=== PATIENT | male | born 1940 | race African-American/Black ===

== ENCOUNTER 2016-06-29 15:54 | Inpatient (IN) | payer MEDICARE, MEDICAID ==
[~2016-06-29] VITALS: Ht 180.3 cm; Wt 70.9 kg
[~2016-06-29 15:54] MED LIST: DIVA500T35 PO; HALO5 PO; RISP3 PO
[2016-06-29] MEDS ORDERED: HALOPERIDOL 5 MG TABLET PO PRN (16:45)
[2016-06-29] MEDS ORDERED: LORazepam 2 MG TABLET PO PRN (16:45)
[2016-06-29] MEDS ORDERED: ZOLPIDEM TARTRATE 10 MG TABLET PO PRN (16:45)
[2016-06-29] MEDS ORDERED: PNEUMOCOCCAL VACCINE POLYVALENT 0.5 ML VIAL [PPSV23] IM ONE (17:00)
[2016-06-29 17:20] VITALS: BP 154/93
[2016-06-29 19:55] VITALS: BP 166/83
[2016-06-29] MEDS ORDERED: CloNIDine HCL 0.1 MG TABLET PO PRN (20:00)
[2016-06-29] MEDS: DIVALPROEX SODIUM 500 MG DR TABLET PO SCH (20:33)
[2016-06-29] MEDS: RisperiDONE 1 MG TABLET PO SCH (20:33)
[2016-06-30 06:40] VITALS: BP 138/75
[2016-06-30 08:13] VITALS: BP 121/71
[2016-06-30] MEDS: RisperiDONE 1 MG TABLET PO SCH ×2 (09:00→16:41)
[2016-06-30] MEDS: DIVALPROEX SODIUM 500 MG DR TABLET PO SCH ×2 (09:00→20:42)
[2016-06-30] MEDS ORDERED: PETROLATUM,WHITE 71 GM JELLY TP PRN (11:30)
[2016-06-30] MEDS ORDERED: ACETAMINOPHEN 325 MG TABLET PO PRN (11:30)
[2016-06-30] MEDS ORDERED: IBUPROFEN 600 MG TABLET PO PRN (11:30)
[2016-06-30] MEDS ORDERED: CloNIDine HCL 0.1 MG TABLET PO PRN (11:30)
[2016-06-30] MEDS ORDERED: BENZOCAINE/MENTHOL LOZENGE MM PRN (11:30)
[2016-06-30] MEDS ORDERED: BACITRACIN 28.4 GM OINTMENT TP PRN (11:30)
[2016-06-30] MEDS ORDERED: ONDANSETRON HCL 4 MG TABLET PO PRN (11:30)
[2016-06-30] MEDS ORDERED: MAG HYDROX/AL HYDROX/SIMETH ES 30 ML SUSPENSION UDCUP PO PRN (11:30)
[2016-06-30] MEDS ORDERED: ALBUTEROL SULFATE HFA 90 MCG/PUFF 8 GM INHALER IH PRN (11:30)
[2016-06-30] MEDS ORDERED: LOPERAMIDE HCL 2 MG CAPSULE PO PRN (11:30)
[2016-06-30] MEDS ORDERED: MAGNESIUM HYDROXIDE SUSPENSION 30 ML UDCUP PO PRN (11:30)
[2016-06-30 16:00] VITALS: BP 125/82
[2016-07-01 07:06] VITALS: BP 135/76
[2016-07-01 08:26] VITALS: BP 128/65
[2016-07-01] MEDS: RisperiDONE 1 MG TABLET PO SCH ×2 (08:59→17:00)
[2016-07-01] MEDS: DIVALPROEX SODIUM 500 MG DR TABLET PO SCH ×2 (08:59→20:45)
[2016-07-01] MEDS ORDERED: LORA1TAB3 PO (11:08)
[2016-07-01 16:00] VITALS: BP 128/88
[2016-07-02 06:42] VITALS: BP 122/76
[2016-07-02 08:32] VITALS: BP 117/68
[2016-07-02] MEDS: RisperiDONE 1 MG TABLET PO SCH (08:47)
[2016-07-02] MEDS: DIVALPROEX SODIUM 500 MG DR TABLET PO SCH (08:47)
== END 2016-07-02 13:50 | disposition home or self-care (01) | DRG 750 ==
LOC: EDBD → B3A 16:50
DX: F20.0 Paranoid schizophrenia (principal); D64.9 Anemia, unspecified; Z59.0 Homelessness; B35.3 Tinea pedis; K21.9 Gastro-esophageal reflux disease without esophagitis; I10 Essential (primary) hypertension; G47.00 Insomnia, unspecified; M19.90 Unspecified osteoarthritis, unspecified site; K59.00 Constipation, unspecified; R63.3 Feeding difficulties; Y92.481 Parking lot as the place of occurrence of the external cause; Z79.899 Other long term (current) drug therapy; Z28.21 Immunization not carried out because of patient refusal

== ENCOUNTER 2016-07-01 10:46 | Emergency (ER) | payer MEDICARE, OTHER ==
[~2016-07-01] VITALS: Ht 180.3 cm; Wt 75.0 kg
[2016-07-01] MEDS ORDERED: LORA1TAB3 PO (11:08)
[2016-07-01 11:14] VITALS: BP 124/84
== END 2016-07-01 15:47 | disposition home or self-care (01) ==
LOC: EDBD 10:47 → EEVIPCON 10:47 → EMS 10:47
DX: F20.0 Paranoid schizophrenia (principal); F31.9 Bipolar disorder, unspecified
CPT/HCPCS: 99285